=== PATIENT | male | born 1975 | race Caucasian/White ===

== ENCOUNTER 2018-05-07 16:43 | Emergency (ER) | payer OTHER ==
[~2018-05-07] VITALS: Ht 182.9 cm; Wt 102.3 kg
--- NOTE | 2018-05-07 17:54 | REP ---
Clinical: Fall with pain. Technique: AP and lateral views of the left tibia / fibula. Findings: No acute fracture or dislocation. Skeletal structures, joint spaces, and surrounding soft tissues appear normal. No subcutaneous emphysema or radiodense foreign body. Impression: No acute fracture or dislocation. Electronically Signed by Ramiro Figueroa MD 05/07/2018 05:45 P
[2018-05-07 18:03] VITALS: BP 119/81
== END 2018-05-07 18:04 | disposition home or self-care (01) ==
LOC: M ED 16:43
DX: S80.12XA Contusion of left lower leg, initial encounter (principal); W00.0XXA Fall on same level due to ice and snow, initial encounter; Y92.89 Other specified places as the place of occurrence of the external cause

== ENCOUNTER 2018-08-21 14:41 | Emergency (ER) | payer OTHER ==
[~2018-08-21] VITALS: Ht 185.4 cm; Wt 50.6 kg
[2018-08-21] MEDS ORDERED: TIZA4CAP (14:53)
[2018-08-21] MEDS ORDERED: MELO15TA28 (14:53)
[2018-08-21] MEDS ORDERED: GABA-843 (14:53)
--- NOTE | 2018-08-21 15:43 | REP ---
Duplex extremity venous ultrasound: Left lower extremity. History: Left foot swelling. Rule out venous thrombosis. Findings: The deep veins are anechoic and fully compressible from the groin to the popliteal fossa in the left lower extremity. Color flow imaging is homogeneous. Spectral Doppler interrogation demonstrates intact respiratory variation in flow and normal manual augmentation of flow. There is no evidence of deep vein thrombosis. Impression: Negative left lower extremity duplex venous ultrasound. No evidence of deep vein thrombosis. Electronically Signed by Andrea Cordero MD 08/21/2018 03:34 P
[2018-08-21 17:22] VITALS: BP 126/78
== END 2018-08-21 17:36 | disposition home or self-care (01) ==
LOC: M ED 14:41
DX: M54.42 Lumbago with sciatica, left side (principal); R20.2 Paresthesia of skin; R20.0 Anesthesia of skin; Z79.899 Other long term (current) drug therapy

== ENCOUNTER → 2019-09-16 | Outpatient (REF) | payer OTHER ==
[~2019-09-16] MED LIST: GABA-843; MELO15TA28; TIZA4CAP
== END ==
LOC: M LAB REF 17:20
PROVIDERS: ATTEND Physician Assistant
DX: M54.5 Low back pain (principal)

== ENCOUNTER 2019-09-25 20:02 | Inpatient (IN) | payer BC, OTHER ==
[~2019-09-25] VITALS: Ht 182.9 cm; Wt 117.0 kg
[2019-09-25] MEDS: IPRATROPIUM 0.5MG/ALBUTEROL 2.5MG INH SOL UD 3ML (DUONEB) NEB SCH (20:00)
[2019-09-25] MEDS ORDERED: PROPOFOL 1,000 MG/100 ML VIAL As Ordered ONE (20:20)
[2019-09-25] MEDS ORDERED: propofoL 1,000 MG in IV 1 EA IV SCH (20:44)
[2019-09-25] MEDS ORDERED: ETOMIDATE INJ 20MG/10ML VIAL IV ONE (20:45)
[2019-09-25] MEDS ORDERED: NS 1,000 ML IV ONE (20:45)
[2019-09-25] MEDS ORDERED: SUCCINYLCHOLINE INJ 200 MG/10 ML VIAL (J0330) IV ONE (20:45)
[2019-09-25 20:46] LABS: BASO # 0.1 10^3/uL (0.0-0.2); BASO % 0.9 % (0.0-1.0); EOS # 0.2 10^3/uL (0.0-0.5); EOS % 2.5 % (0.0-3.0); HEMATOCRIT 47.5 % (42.0-52.0); HEMOGLOBIN 16.1 g/dl (13.5-17.5); LYMPH # 2.4 10^3/uL (1.5-5.0); LYMPH % 29.6 % (24.0-44.0); MEAN CORPUSCULAR HEMOGLOBIN 30.8 pg (27.0-33.0); MEAN CORPUSCULAR HGB CONC 33.9 g/dl (32.0-36.5); MEAN CORPUSCULAR VOLUME 90.8 fl (80.0-96.0); MONO # 0.5 10^3/uL (0.0-0.8); MONO % 6.3 % (0.0-5.0); NEUTROPHILS # 4.9 10^3/uL (1.5-8.5); PLATELET COUNT, AUTOMATED 292 10^3/uL (150-450); RED BLOOD COUNT 5.23 10^6/uL (4.30-6.10); WHITE BLOOD COUNT 8.1 10^3/uL (4.0-10.0)
[2019-09-25] MEDS ORDERED: ISOVUE-370 76% 100ML VIAL As Ordered ONE (20:58)
[2019-09-25] MEDS ORDERED: CHLORHEXIDINE GLUCONATE 0.12 % 15ML UDC (PERIDEX ORAL RINSE) MT SCH (21:00)
[2019-09-25 21:15] LABS: OSMOLALITY SERUM 353 MOSM/KG (275-295)
[2019-09-25 21:28] LABS: ALBUMIN 4.2 GM/DL (3.2-5.2); ALT/SGPT 29 U/L (12-78); BILIRUBIN,DIRECT 0.1 MG/DL (0.0-0.2); BILIRUBIN,TOTAL 0.3 MG/DL (0.2-1.0); BLOOD UREA NITROGEN 16 MG/DL (7-18); CALCIUM LEVEL 9.1 MG/DL (8.5-10.1); CARBON DIOXIDE LEVEL 23 MEQ/L (21-32); CHLORIDE LEVEL 110 MEQ/L (98-107); CREATININE FOR GFR 1.21 MG/DL (0.70-1.30); ETHYL ALCOHOL (ETHANOL) 0.213 % (0.000-0.010); GLOMERULAR FILTRATION RATE > 60.0 (>60); GLUCOSE, FASTING 98 MG/DL (70-100); POTASSIUM SERUM 3.9 MEQ/L (3.5-5.1); SALICYLATE LEVEL < 1.7 MG/DL (5.0-30.0); SODIUM LEVEL 144 MEQ/L (136-145); THYROID STIMULATING HORMONE 0.913 uIU/ML (0.358-3.740); TOTAL PROTEIN 8.1 GM/DL (6.4-8.2)
[2019-09-25 21:29] LABS: ACETAMINOPHEN LEVEL < 2.0 UG/ML (10.0-30.0)
[2019-09-25 21:41] LABS: CPK CREATINE PHOSPHOKINASE 554 U/L (39-308); TROPONIN I < 0.02 NG/ML (< 0.10)
[2019-09-25 21:42] LABS: CK-MB VALUE MASS 3.8 NG/ML (<3.6); MB/CK RELATIVE INDEX 0.69 (< OR =4)
--- NOTE | 2019-09-25 21:43 | REPVR ---
PROCEDURE INFORMATION: Exam: CT Head Without Contrast Exam date and time: 09/25/2019 9:06 PM Age: 44 years old Clinical indication: Pain; Headache; Additional info: Altered mental status TECHNIQUE: Imaging protocol: Computed tomography of the head without contrast. Radiation optimization: All CT scans at this facility use at least one of these dose optimization techniques: automated exposure control; mA and/or kV adjustment per patient size (includes targeted exams where dose is matched to clinical indication); or iterative reconstruction. COMPARISON: No relevant prior studies available. FINDINGS: Brain: Normal. No hemorrhage. Unremarkable white matter. No mass effect. Ventricles: Normal. No ventriculomegaly. Bones/joints: Unremarkable. No acute fracture. Sinuses: Visualized sinuses are unremarkable. No fluid levels. Mastoid air cells: Visualized mastoid air cells are well aerated. Soft tissues: Unremarkable. IMPRESSION: No acute intracranial abnormality. Electronically signed by: Sagar Brothers On 09/25/2019 21:43:16 PM
--- NOTE | 2019-09-25 21:56 | REPVR ---
PROCEDURE INFORMATION: Exam: CT Angiography Chest with Contrast Exam date and time: 09/25/19 (9:06pm) Age: 44 years old Clinical indication: Chest pain TECHNIQUE: Imaging protocol: Computed tomographic angiography of the chest with intravenous contrast. 3D rendering: MIP and/or 3D reconstructed images were created by the technologist. Radiation optimization: All CT scans at this facility use at least one of these dose optimization techniques: automated exposure control; mA and/or kV adjustment per patient size (includes targeted exams where dose is matched to clinical indication); or iterative reconstruction. Contrast material: Iso 370 Contrast volume: 100 ml Contrast route: IV COMPARISON: No relevant prior studies available FINDINGS: Pulmonary arteries: Normal. No pulmonary emboli. Aorta: Unremarkable. No aortic aneurysm. No aortic dissection. Lungs: Streaky parenchymal changes and consolidation/atelectasis posteriorly at each lung base. Some air bronchograms are noted. No masses. Pleural space: No pneumothorax. Minimal pleural effusions. Elevation of the right hemidiaphragm. Heart: Unremarkable. No cardiomegaly. No pericardial effusion. Lymph nodes: Unremarkable. No enlarged lymph nodes. Other findings: Airway tube in place, with its tip approx. 3 cm above the reji. Bones/joints: Unremarkable. No acute fracture. Soft tissues: Unremarkable. Upper abdomen: Enteric tube noted, with its tip in the proximal third of the stomach. IMPRESSION: Streaky parenchymal changes and consolidation / atelectasis posteriorly at each lung base. Some air bronchograms are noted. Minimal pleural effusions. Possible bibasilar pneumonia, with consolidation. Follow-up with plain CXR's is suggested. Airway tube and enteric tube in place. Electronically signed by: Corie Arnold On 09/25/2019 21:55:41 PM
[2019-09-25] MEDS ORDERED: MIDAZOLAM 5MG/ML 1ML VIAL (J2250 PER 1MG) As Ordered ONE (22:02)
[2019-09-25 22:13] LABS: AMPHETAMINES LEVEL URINE NEGATIVE (NEGATIVE); BARBITURATES URINE NEGATIVE (NEGATIVE); BENZODIAZEPINES URINE NEGATIVE (NEGATIVE); CANNABINOIDS URINE NEGATIVE (NEGATIVE); COCAINE METABOLITE URINE NEGATIVE (NEGATIVE); METHADONE URINE NEGATIVE (NEGATIVE); OPIATES URINE NEGATIVE (NEGATIVE); PHENCYCLIDINE URINE NEGATIVE (NEGATIVE)
[2019-09-25] MEDS ORDERED: levETIRAcetam INJection 1,000 MG in D5W 100 ML IV ONE (22:15)
[2019-09-25] MEDS ORDERED: KCL 20MEQ IN D5/0.45NS 1000ML 1,000 ML IV SCH (22:15)
--- NOTE | 2019-09-25 22:15 | REPVR ---
PROCEDURE INFORMATION: Exam: CT Abdomen and Pelvis with Contrast Exam date and time: 09/25/19 (9:06pm) Age: 44 years old Clinical indication: Abdominal and chest pain. Unresponsiveness. TECHNIQUE: Imaging protocol: Computed tomography of the abdomen and pelvis with intravenous contrast. Radiation optimization: All CT scans at this facility use at least one of these dose optimization techniques: automated exposure control; mA and/or kV adjustment per patient size (includes targeted exams where dose is matched to clinical indication); or iterative reconstruction. Contrast material: Iso 370 Contrast volume: 100 ml Contrast route: IV COMPARISON: No relevant prior studies available FINDINGS: Lower lung barron: Streaky changes and consolidation and/or atelectasis posteriorly at each lung base. Minimal pleural effusions. Liver: Normal. No solid mass. Gallbladder and bile ducts: Normal. No calcified stones. No ductal dilatation. Pancreas: Normal. No ductal dilatation. Spleen: Normal. No splenomegaly. Adrenals: Normal. No mass. Kidneys and ureters: Normal. No hydronephrosis. Stomach and bowel: Distended stomach, filled with food debris and air. No bowel obstruction. No mucosal thickening. Appendix: A normal appendix is visualized. Other findings: Enteric tube in place, with its tip in the proximal third of the stomach. Intraperitoneal space: Unremarkable. No free air. No significant fluid collection. Vasculature: Unremarkable. No abdominal aortic aneurysm. Lymph nodes: Unremarkable. No enlarged lymph nodes. Bladder: Unremarkable as visualized. Reproductive: Unremarkable as visualized. Bones/joints: Unremarkable. No acute fracture. Soft tissues: Unremarkable. IMPRESSION: Possible bibasilar pneumonia (see separate CT-CHEST report). No acute bowel pathology. No hydronephrosis. Enteric tube in place. Electronically signed by: Corie Arnold On 09/25/2019 22:14:48 PM
[2019-09-25] MEDS: MIDAZOLAM INJ 2MG/2ML VIAL (J2250 PER 1MG) IV PRN ×2 (22:36→23:26)
[2019-09-25] MEDS ORDERED: MIDAZOLAM 5MG/ML 1ML VIAL (J2250 PER 1MG) IV STA (22:41)
[2019-09-25] MEDS: propofoL 1,000 MG in IV 1 EA IV SCH (22:49)
[2019-09-25 23:25] VITALS: BP 147/84
[2019-09-25 23:30] VITALS: BP 124/74
[2019-09-25 23:32] LABS: ABG BASE EXCESS -4.9 (-2.0-2.0); ABG HCO3 23.4 MEQ/L (22.0-26.0); ABG O2 SATURATION 98.1 % (95.0-99.0); ABG PARTIAL PRESSURE CO2 56.4 mmHg (35.0-45.0); ABG PARTIAL PRESSURE O2 127.3 mmHg (75.0-100.0); ABG STANDARD HCO3 20.5 MEQ/L (22.0-26.0); ABG TOTAL CO2 25.1 MEQ/L (22.0-29.0)
[2019-09-25 23:33] LABS: ABG pH (ARTERIAL) 7.235 UNITS (7.350-7.450)
--- NOTE | 2019-09-25 23:56 | HPE ---
DATE OF ADMISSION: 09/25/2019 CRITICAL CARE NOTE/ADMISSION HISTORY AND PHYSICAL DATE OF SERVICE: 09/25/2019 Critical care time was 1 hour and 16 minutes, this excludes all procedures. I was called to the emergency room by Dr. Plummer to admit this patient who reportedly was combative after consuming alcohol, recently being prescribed trazodone and in the ambulance received two large doses of ketamine for a total of 500 mg. On arrival to the emergency room, the patient was sedated to the point where he required intubation. [place] imaging was performed. Then I was called for admission. On my review, I did call his significant other who provided information she was with him when he came to sit down after eating a large meal and started grabbing at his throat and then had what appeared to be seizure-like activity. The patient then had slumped over, fallen on the floor, continued with multiple shaking movements of the arms and legs. The significant other, who is a nurse, described it in her own words as seizure-like activity. She gave him rescue breaths and eventually the seizure activity stopped prior to the ambulance arriving. After awhile, the patient came to, was able to speak. Apparently this changed during the ambulance ride, and he required reportedly ketamine. Showed up sedated in the emergency room. On my arrival to the emergency room, the patient was sedated, moving some extremities, mostly his right arm in a rhythmic-type motion. Upon my physical exam, the pupils were not reactive, and he began to have rhythmic motion of his entire body and what appeared to be at tonic-clonic seizure despite being on propofol. Versed was given at that time at 5 mg. The overall tonic-clonic movement stopped. However, with dorsiflexion of the foot, there continued to be continued beats of myoclonus. I then loaded the patient with Keppra. After Keppra loading, there was no evidence of myoclonus with dorsiflexion of the foot. It does appear that the patient had recent medication adjustments including being on gabapentin and tizanidine. His states he did not take his gabapentin as he was trying to get off of it, but was recently started on trazodone. He was consuming alcohol throughout the day, and there was some mention of him being dehydrated on his most recent blood work in the office. The only other notable symptom that his significant other provided me is that he has been having headaches for approximately 3 months. He has no prior history of seizure activity. As far as his past medical history, other than headaches and chronic pain, no other significant medical history. SOCIAL HISTORY: Unobtainable. FAMILY HISTORY: Unobtainable. REVIEW OF SYSTEMS: Unobtainable. PHYSICAL EXAMINATION: Temperature is 97.3, pulse is 90, respiratory rate is 20, blood pressure is 106/55 with an oxygen saturation of 98% on 0.50 FiO2. General: Sedated on mechanical ventilation now, witnessed seizure activity as mentioned above, full tonic-clonic activity. HEENT: Sclerae are somewhat injected. The left sclera is slightly edematous. Pupils are not reactive to light. Approximately 5 mm but symmetric. Mucous membranes are moist. Tongue is midline. Lymphs: No cervical, supraclavicular or axillary lymphadenopathy. Cardiac: Regular, S1, S2 without audible murmur, rub or gallop. No elevated jugular venous pressure (JVP). No peripheral edema. Pulmonary: Clear to auscultation without rales, rhonchi or wheezes. No dullness to percussion. Abdomen is soft, nontender, nondistended with hypoactive bowel sounds, but they are present. No discernible hepatosplenomegaly. No masses or hernia. Extremities: No cyanosis, clubbing or edema. Neurologic exam: As mentioned above, fluctuating degrees of myoclonus that improved after loading with Keppra. There has been no distinct posturing. At the beginning of the seizure, at first I thought he was posturing, but then it turned into a full tonic-clonic seizure. This was short lived. There has been no other seizure activity since that time. I am unable to test any other parts of his neurologic exam as I am attempting to suppress seizure activity. LABORATORY EVALUATION: White blood cell count is 8.1, hemoglobin of 16.1, platelet count is 292, neutrophils 60%. Sodium is 144, potassium 3.9, chloride is 110, bicarbonate of 23, anion gap is 11, BUN is 16, creatinine is 1.21. This has improved since his initial chem panel, which suggested an anion gap of 16, creatinine was up to 1.5. Toxicology is negative except for alcohol. There is no opioids, methadone, barbiturates, PCP, amphetamines, cocaine or cannabinoids. Acetaminophen and salicylate levels are negative. CK was elevated consistent with likely seizure activity. Albumin is normal at 4.2. Urine does show positive RBCs with blood in the urine. Head CT shows no acute intracranial abnormality. Angio CT shows bilateral lower lobe dependent atelectasis versus minimal consolidation. Chest x-ray shows decreased air entry without effusion, mass or infiltrate. Abdominal CT shows no acute bowel pathology. No hydronephrosis and a G-tube that is in place with a distended stomach. IMPRESSION: 1. Acute respiratory failure, likely provoked by seizure activity, partially complicated by drug administration. There is no evidence of a drug overdose or inappropriate illicit drug use. I do believe the most likely event was that the patient was starting to have a seizure or aspirating. Medications he is on at home, whether he is withdrawing or taking more, could easily in combination provoke seizure activity. Will, therefore, hold all home medications, start Keppra, place on propofol with as needed Versed. Continue to monitor for signs and symptoms of seizure activity. Will continue frequent neurologic exams. Every morning will perform neurologic exams under sedation vacation. My expectation is when the drug effect wears off that he will likely be able to come off the ventilator. 2. Bilateral atelectasis, possible aspiration. No elevated white count, no fever at this point in time. I am not going to initiate any antibiotics but will cautiously watch the patient for development of infection. 3. Deep vein thrombosis (DVT) prophylaxis with heparin. 4. Gastrointestinal (GI) prophylaxis with Protonix. Stomach is filled with food; therefore, will not start tube feeds at this point in time. Will consider a neurology consultation if the patient has persistent seizure activity.
[2019-09-26] VITALS (17 sets, daily range): BP systolic 98–153; BP diastolic 52–95
[2019-09-26] MEDS ORDERED: cefTRIAXone SOD 1 GM in D5W MINI-BAG PLUS 50 ML IV SCH ×2
[2019-09-26] MEDS: MIDAZOLAM INJ 2MG/2ML VIAL (J2250 PER 1MG) IV PRN ×2 (01:39→04:33)
[2019-09-26] MEDS: propofoL 1,000 MG in IV 1 EA IV SCH (01:49)
[2019-09-26 04:51] LABS: HEMATOCRIT 41.2 % (42.0-52.0); MEAN CORPUSCULAR HEMOGLOBIN 30.3 pg (27.0-33.0); MEAN CORPUSCULAR VOLUME 91.8 fl (80.0-96.0); PLATELET COUNT, AUTOMATED 240 10^3/uL (150-450); RED BLOOD COUNT 4.49 10^6/uL (4.30-6.10); WHITE BLOOD COUNT 7.8 10^3/uL (4.0-10.0)
[2019-09-26 04:59] LABS: HEMOGLOBIN 13.6 g/dl (13.5-17.5)
[2019-09-26 05:01] LABS: ALBUMIN 3.3 GM/DL (3.2-5.2); ALT/SGPT 21 U/L (12-78); BILIRUBIN,TOTAL 0.2 MG/DL (0.2-1.0); BLOOD UREA NITROGEN 14 MG/DL (7-18); CALCIUM LEVEL 7.9 MG/DL (8.5-10.1); CARBON DIOXIDE LEVEL 24 MEQ/L (21-32); CHLORIDE LEVEL 112 MEQ/L (98-107); CREATININE FOR GFR 0.99 MG/DL (0.70-1.30); GLOMERULAR FILTRATION RATE > 60.0 (>60); GLUCOSE, FASTING 100 MG/DL (70-100); POTASSIUM SERUM 3.8 MEQ/L (3.5-5.1); SODIUM LEVEL 142 MEQ/L (136-145); TOTAL PROTEIN 6.4 GM/DL (6.4-8.2)
[2019-09-26 05:44] LABS: ABG BASE EXCESS -3.6 (-2.0-2.0); ABG HCO3 22.3 MEQ/L (22.0-26.0); ABG O2 SATURATION 98.8 % (95.0-99.0); ABG PARTIAL PRESSURE CO2 43.3 mmHg (35.0-45.0); ABG PARTIAL PRESSURE O2 149.1 mmHg (75.0-100.0); ABG STANDARD HCO3 21.5 MEQ/L (22.0-26.0); ABG TOTAL CO2 23.6 MEQ/L (22.0-29.0); ABG pH (ARTERIAL) 7.329 UNITS (7.350-7.450)
[2019-09-26] MEDS: IPRATROPIUM 0.5MG/ALBUTEROL 2.5MG INH SOL UD 3ML (DUONEB) NEB SCH (05:55)
[2019-09-26] MEDS ORDERED: LORazepam 2 MG/ML VIAL IV PRN (06:00)
--- NOTE | 2019-09-26 06:42 | REP ---
Clinical: Respiratory failure . Comparison: 09/25/2019 . Findings: The mediastinum and cardiac silhouette are stable and within normal limits for portable technique. Subtle infrahilar atelectasis (left greater than right) is suggested, but improved as compared to prior examination. Previously noted endotracheal tube and nasogastric tube have been removed. No effusion. No pneumothorax. Skeletal structures are intact. Impression: Mild perihilar and left basilar atelectasis improved from prior examination. Electronically Signed by Ramiro Figueroa MD 09/26/2019 06:34 A
--- NOTE | 2019-09-26 06:54 | REP ---
Clinical: Altered mental status. Comparison: None. Findings: Endotracheal tube 3.5 cm above the reji. Nasogastric tube courses below left hemidiaphragm. Evaluation is limited by poor inspiratory effort which accentuates the pulmonary vasculature and interstitium. Perihilar and basilar atelectasis cannot be excluded. No discrete focal consolidation, effusion, or pneumothorax. Skeletal structures are intact. Impression: 1. Endotracheal tube and nasogastric tube in satisfactory position. 2. Perihilar and basilar atelectasis cannot be excluded. Electronically Signed by Ramiro Figueroa MD 09/26/2019 06:46 A
[2019-09-26] MEDS: ENOXAPARIN 40MG/0.4ML SYRINGE (J1650 PER 10MG) SC SCH (07:57)
[2019-09-26] MEDS ORDERED: levETIRAcetam INJection 1,000 MG in D5W 100 ML IV SCH (09:00)
[2019-09-26] MEDS ORDERED: FOLIC ACID 1 MG TAB PO SCH (09:00)
[2019-09-26] MEDS ORDERED: MULTIVITAMINS/MINERALS THERAP 1 TAB PO SCH (09:00)
[2019-09-26] MEDS ORDERED: PANTOPRAZOLE 40MG VIAL (C9113 PER 1) IV SCH (09:00)
--- NOTE | 2019-09-26 09:24 | CCN ---
DATE OF SERVICE: 09/26/2019 CRITICAL CARE TIME: 50 minutes. This excludes all procedures. The patient had self extubated approximately 5 a.m.. He was awake without oxygen desaturation. Therefore, it was determined to leave him extubated. He had no further seizure activity. He has some short-term memory loss, stating he cannot remember the events. I have explained that, that is normal especially with what he has been through. He continues to have a posterior headache, which has been present for almost 3 months now. He has had no fever, chills. He has no elevated white count. He was given a dose of antibiotics overnight for presumed aspiration due to copious amounts of secretions from the endotracheal tube. However, this was discontinued this morning. PHYSICAL EXAMINATION: Temperature is 98.2, pulse of 86, respiratory rate is 19, blood pressure is 153/95 with a mean arterial pressure of 114, oxygen saturations 99% on 3 liters. General: Patient sitting in bed speaking in a soft voice. HEENT: Sclerae clear and anicteric. Pupils equal and react to light. Mucous membranes moist without lesions. Tongue is midline. Neck is supple. No tracheal deviation or mass. Lymphs: No cervical, supraclavicular, or axillary adenopathy. Cardiac: Regular, S1, S2. Without audible murmur, rub, or gallop. No elevated jugular venous pulse (JVP). No peripheral edema. Pulmonary: Clear to auscultation without rales, rhonchi, or wheezes. No dullness to percussion. No accessory muscle use. Abdomen: Obese, soft, nontender, nondistended with normoactive bowel sounds. No mass or splenomegaly. Extremities: No cyanosis, clubbing, or edema. Skin: No rash, jaundice, or bruising. Musculoskeletal: Patient able to move all four extremities to command. Muscle strength is 4/5 bilaterally, however and this is symmetric. However, I believe some of this is patient effort. Deep tendon reflexes (DTRs) are normal at patella and brachial radialis. There is no further myoclonus with dorsiflexion of the foot. There is no nystagmus.. No asterixis. Laboratory evaluation shows a sodium 142, potassium 3.8, chloride of 112, bicarbonate of 24, BUN of 14, creatinine of 0.99, fasting glucose of 100, last lactic acid was 1.9, calcium 7.9. AST and ALT are normal. Alkaline phosphatase is normal. Albumin is down to 3.3. Blood gas this morning shows a pH of 7.33, pCO2 of 43, pAO2 of 149 on 0.35 FiO2. White blood cell count is 7.8, hemoglobin of 13.6 with a platelet count of 240. Chest x-ray shows minimal nonspecific abnormalities without dense infiltrate. Some hypo expansion. No pneumothorax. Trachea midline. IMPRESSION: 1. Respiratory failure from seizure activity. The patient self extubated this am and is doing well. As far as seizure activity, discussed the case with Dr. Grimes, our neurologist, who agrees that the history of the medications combination of gabapentin, tizanidine, trazodone in a combination with alcohol could be the perfect storm to setup for seizure activity. At this point in time, will remain on Keppra. Will also start zonisamide 50 mg by mouth at bedtime for the first week. This can be increased to 100 mg after the first week. This may also help with his headaches and help him sleep at night. He will have followup with neurology. To complete some of his workup to ensure that he is not a danger for further seizure activity MRI will be performed to rule out any structural abnormalities and EEG will be performed to ensure that there is no further underlying seizure activity. 2. Presumed aspiration. Will stop antibiotics at this point in time. Continue to monitor for infection. At this point in time, there is no fever or white count. 3. Deep venous thrombosis (DVT) prophylaxis. Will continue with heparin. 4. Gastrointestinal (GI) prophylaxis. On Protonix. Will initiate diet as tolerated. Prognosis overall, I believe the patient will likely be able to be discharged tomorrow unless there is an unexpected finding on imaging. [facility]
--- NOTE | 2019-09-26 17:02 | IPNPDOC ---
Subjective Date Seen The patient was seen on 09/26/19. Subjective Chief Complaint/HPI Complains of soreness all over the body. He cannot remember the events. Last thing he remembers in sitting on the couch and getting the remote to change the TV channels. Objective Physical Examination General Exam: Positive: Alert, Cooperative, No Acute Distress Eye Exam: Positive: PERRLA, Conjunctiva & lids normal, EOMI; Negative: Sclera icteric ENT Exam: Positive: Atraumatic, Mucous membr. moist/pink, Pharynx Normal Neck Exam: Positive: Supple; Negative: JVD, thyromegaly Chest Exam: Positive: Clear to auscultation, Normal air movement Heart Exam: Positive: Rate Normal, Regular Rhythm, Normal S1, Normal S2; Negative: Murmurs, Rubs Abdomen Exam: Positive: Normal bowel sounds, Soft; Negative: Tenderness, Hepatospenomegaly Extremity Exam: Positive: Normal pulses; Negative: Clubbing, Cyanosis, Edema Skin Exam: Positive: Nl turgor and temperature; Negative: Rash, Breakdown Assessment /Plan Assessment Acute Respiratory failure from seizure activity. was intubated in the ED for obtundation and inability to maintain airway after big dose of ketamine given in ambulance probably for post ictal delirium/psychosis when reportedly he had become combative in the ambulance. patient self extubated this am. Was able to maintain airway. Seizures [place] seizures at least 2 episodes. Due to a combination of medications with alcohol. Alcohol level was 0.213 Gabapentin, tizanidine, trazodone in a combination with alcohol could cause seizures. continue on Keppra 1000 mg bid and Zonisamide. zonisamide 50 mg by mouth at bedtime for the first week. This can be increased to 100 mg after the first week. Neurology follow up after discharge. MRI to look for any structural abnormality. EEG will be performed to ensure that there is no further underlying seizure activity. Presumed aspiration. No signs of infection at present. will monitor for fever stopped antibiotics at present. Back Pain leg pain after injury in Apr. Deep venous thrombosis (DVT) prophylaxis. Lovenox Gastrointestinal (GI) prophylaxis. On Protonix. Plan/VTE VTE Prophylaxis Ordered?: Yes VS, I&O, 24H, Fishbone Vital Signs/I&O Vital Signs Date Time Temp Pulse Resp B/P (MAP) Pulse Ox O2 Delivery O2 Flow Rate FiO2 09/26/19 11:44 99.1 83 29 135/86 (102) 97 Room Air 09/26/19 08:00 30 09/25/19 21:33 18.0 I&O- Last 24 Hours up to 6 AM 09/26/19 07:00 Intake Total 2176 ml Output Total 1075 ml Balance 1101 ml Laboratory Data 24H LABS Laboratory Tests 2 09/25/19 20:24: Urine Color YELLOW, Urine Appearance HAZY, Urine pH 5.0, Urine Specific [place] 1.028, Urine Protein 1+H, Urine Glucose (UA) NEGATIVE, Urine Ketones NEGATIVE, Urine Blood 2+H, Urine Nitrite NEGATIVE, Urine Bilirubin NEGATIVE, Urine Urobilinogen 0.2, Urine Leukocyte Esterase NEGATIVE, Urine WBC (Auto) 0, Urine RBC (Auto) 30H, Urine Hyaline Casts (Auto) 21, Urine Bacteria (Auto) NEGATIVE, Urine Squamous Epithelial Cells 0, Urine Mucus (Auto) SMALL, Urine Sperm (Auto) , Urine Opiates Screen NEGATIVE, Urine Methadone Screen NEGATIVE, Urine Barbiturates Screen NEGATIVE, Urine Phencyclidine Screen NEGATIVE, Urine Amphetamines Screen NEGATIVE, Urine Benzodiazepines Screen NEGATIVE, Urine Cocaine Metabolite Screen NEGATIVE, Urine Cannabinoids Screen NEGATIVE 09/25/19 20:32: Immature Granulocyte % (Auto) 0.7, Neutrophils (%) (Auto) 60.0, Lymphocytes (%) (Auto) 29.6, Monocytes (%) (Auto) 6.3H, Eosinophils (%) (Auto) 2.5, Basophils (%) (Auto) 0.9, Neutrophils # (Auto) 4.9, Lymphocytes # (Auto) 2.4, Monocytes # (Auto) 0.5, Eosinophils # (Auto) 0.2, Basophils # (Auto) 0.1, Nucleated Red Blood Cells % (auto) 0.0, Anion Gap 11, Glomerular Filtration Rate > 60.0, Osm olality 353H, Calcium Level 9.1, Total Bilirubin 0.3, Direct Bilirubin 0.1, Aspartate Amino Transf (AST/SGOT) 28, Alanine Aminotransferase (ALT/SGPT) 29, Alkaline Phosphatase 106, Ammonia 26, Total Creatine Kinase 554H, Creatine Kinase MB 3.8H, Creatine Kinase MB Relative Index 0.69, Troponin I < 0.02, Total Protein 8.1, Albumin 4.2, Albumin/Globulin Ratio 1.1, Thyroid Stimulating Hormone (TSH) 0.913, Salicylates Level < 1.7L, Acetaminophen Level < 2.0L, Ethyl Alcohol Level 0.213H 09/25/19 20:40: POC Glucose (Misc Panel) 105, POC Sodium (Misc Panel) 144, POC Potassium (Misc Panel) 3.7, POC Chloride (Misc Panel) 106, POC Total CO2 (Misc Panel) 22.0L, POC Blood Urea Nitrogen (Misc Panel 17, POC Ionized Calcium (Misc Panel) 4.5, POC Creatinine (Misc Panel) 1.5H, POC Hematocrit (Misc Panel) 48.0 09/25/19 20:56: POC Total CO2 (Misc Panel) 24.0, POC pH (Misc Panel) 7.271L, POC Base Excess (Misc Panel) -4.0L, POC Saturated Percent O2 (Misc) 99H, POC pO2 (Misc Panel) 148.0H, POC pCO2 (Misc Panel) 48.6H, POC HCO3 (Misc Panel) 22.4 09/25/19 23:20: Blood Gas Bicarbonate Standard 20.5L, Arterial Blood pH 7.235*L, Arterial Blood Partial Pressure CO2 56.4H, Arterial Blood Partial Pressure O2 127.3H, Arterial Blood Total CO2 25.1, Arterial Blood HCO3 23.4, Arterial Blood Base Excess - 4.9L, Arterial Blood Oxygen Saturation 98.1 09/26/19 00:04: Lactic Acid Level 1.9 09/26/19 04:12: Nucleated Red Blood Cells % (auto) 0.0, Anion Gap 6L, Glomerular Filtration Rate > 60.0, Calcium Level 7.9L, Total Bilirubin 0.2, Aspartate Amino Transf (AST/SGOT) 30, Alanine Aminotransferase (ALT/SGPT) 21, Alkaline Phosphatase 84, Total Protein 6.4#, Albumin 3.3#, Albumin/Globulin Ratio 1.1 09/26/19 05:24: Blood Gas Bicarbonate Standard 21.5L, Arterial Blood pH 7.329L, Arterial Blood Partial Pressure CO2 43.3, Arterial Blood Partial Pressure O2 149.1H, Arterial Blood Total CO2 23.6, Arterial Blood HCO3 22.3, Arterial Blood Base Excess - 3.6L, Arterial Blood Oxygen Saturation 98.8 CBC/BMP Laboratory Tests 09/25/19 20:32 09/26/19 04:12 Microbiology Microbiology 09/26/19 Blood Culture, Received Pending 09/26/19 Blood Culture, Received Pending CATIE FRANCO MD Sep 26, 2019 17:02
[2019-09-26] MEDS ORDERED: LORazepam 2 MG TAB PO PRN (17:15)
[2019-09-26] MEDS ORDERED: PROHANCE 279.3MG/ML 5ML VIAL As Ordered ONE (18:38)
[2019-09-26] MEDS ORDERED: PROHANCE 279.3MG/ML 15ML VIAL As Ordered ONE (18:39)
[2019-09-26] MEDS: levETIRAcetam 250MG TABLET (KEPPRA) PO SCH (20:01)
--- NOTE | 2019-09-26 20:36 | REPVR ---
PROCEDURE INFORMATION: Exam: MR Head Without and With Contrast Exam date and time: 09/26/2019 7:17 PM Age: 44 years old Clinical indication: Screening exam; Patient HX: Seizure; Additional info: Seizures TECHNIQUE: Imaging protocol: MR of the head without and with intravenous contrast. Contrast material: PROHANCE; Contrast volume: 20 ml; Contrast route: INTRAVENOUS (IV); COMPARISON: CT Head without contrast 09/25/2019 8:54 PM FINDINGS: Brain: There is no acute cortical infarction, intracranial hemorrhage or mass. No abnormal contrast enhancement is seen in the brain parenchyma or leptomeninges. Ventricles: There is a normal variant cavum septum pellucidum et vergae without ventriculomegaly. Bones/joints: Unremarkable. Sinuses: Normal as visualized. No acute sinusitis. Mastoid air cells: Normal as visualized. No mastoid effusion. Orbits: Unremarkable. Soft tissues: Unremarkable. IMPRESSION: No acute intracranial findings. A seizure focus is not identified. Electronically signed by: Geri Nichols On 09/26/2019 20:36:18 PM
[2019-09-26] MEDS ORDERED: THIAMINE 100 MG TAB PO SCH (21:00)
[2019-09-26] MEDS ORDERED: ZONISAMIDE 50 MG CAP (ZONEGRAN) PO SCH (21:00)
[2019-09-27 04:00] VITALS: BP 125/77
[2019-09-27 05:19] LABS: HEMATOCRIT 43.1 % (42.0-52.0); HEMOGLOBIN 14.6 g/dl (13.5-17.5); MEAN CORPUSCULAR HEMOGLOBIN 30.9 pg (27.0-33.0); MEAN CORPUSCULAR HGB CONC 33.9 g/dl (32.0-36.5); MEAN CORPUSCULAR VOLUME 91.1 fl (80.0-96.0); PLATELET COUNT, AUTOMATED 245 10^3/uL (150-450); RED BLOOD COUNT 4.73 10^6/uL (4.30-6.10); WHITE BLOOD COUNT 7.4 10^3/uL (4.0-10.0)
[2019-09-27 05:51] LABS: ALBUMIN 3.4 GM/DL (3.2-5.2); ALT/SGPT 24 U/L (12-78); BILIRUBIN,TOTAL 0.6 MG/DL (0.2-1.0); BLOOD UREA NITROGEN 14 MG/DL (7-18); CALCIUM LEVEL 8.5 MG/DL (8.5-10.1); CARBON DIOXIDE LEVEL 31 MEQ/L (21-32); CHLORIDE LEVEL 107 MEQ/L (98-107); CREATININE FOR GFR 1.01 MG/DL (0.70-1.30); GLOMERULAR FILTRATION RATE > 60.0 (>60); GLUCOSE, FASTING 86 MG/DL (70-100); POTASSIUM SERUM 3.8 MEQ/L (3.5-5.1); SODIUM LEVEL 139 MEQ/L (136-145); TOTAL PROTEIN 6.6 GM/DL (6.4-8.2)
[2019-09-27] MEDS ORDERED: ZONI50CA11 PO (06:35)
[2019-09-27] MEDS ORDERED: KEPP1TAB PO (06:35)
[2019-09-27 08:00] VITALS: BP 135/89
[2019-09-27] MEDS: levETIRAcetam 250MG TABLET (KEPPRA) PO SCH (08:00)
[2019-09-27] MEDS: ENOXAPARIN 40MG/0.4ML SYRINGE (J1650 PER 10MG) SC SCH (08:08)
--- NOTE | 2019-09-27 08:51 | EEG ---
DATE OF PROCEDURE: 09/26/2019 REFERRING PHYSICIAN: Dr. Saravanan Bhandari DIAGNOSIS: Seizure. EEG #: [id number] HISTORY: The patient is a 44-year-old man who was admitted at [facility] due to respiratory failure provoked by seizure, complicated by changes in medications recently and alcohol consumption. This EEG was done to rule out epileptic potential. He is currently on Keppra and zonisamide and received propofol, Versed and Ativan. TECHNICAL DESCRIPTION: This digital EEG was recorded by 21 scalp, ear and two EKG electrodes and was reviewed in bipolar and referential montages following reformatting in 10-20 international electrode placement system. INTERPRETATION: The patient was noted to be in awake and drowsy states during this EEG. Resting awake background rhythm consisted of 8-9 Hz alpha activity measuring 15-40 microvolts in amplitude which was symmetric to and reactive to eye opening. Attenuation of posterior dominant rhythm was seen during transition into drowsiness. No sleep was achieved. Hyperventilation and photic stimulation remained unremarkable. EKG revealed normal sinus rhythm. No focal, lateralizing or epileptiform abnormalities were seen. No relevant clinical activity was noted. CONCLUSION: This EEG in awake and drowsy states is within normal limits.
[2019-09-27] MEDS ORDERED: PANTOPRAZOLE 40MG TAB (PROTONIX) PO SCH (09:00)
[2019-09-27] MEDS ORDERED: propofoL 200 MG/20 ML VIAL ONE (09:11)
[2019-09-27] MEDS ORDERED: ETOMIDATE INJ 20MG/10ML VIAL ONE (09:11)
[2019-09-27] MEDS ORDERED: SUCCINYLCHOLINE INJ 200 MG/10 ML VIAL (J0330) ONE (09:11)
--- NOTE | 2019-09-27 10:46 | ECGEPIP ---
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
== END 2019-09-27 09:12 | disposition home or self-care (01) | DRG 53 ==
LOC: M ED 20:02 → M ED INP 22:08 → ENRESERV 22:36 → M ICU 23:12
PROVIDERS: ADMIT Internal Medicine Pulmonary Disease; ATTEND Internal Medicine Nephrology
PROC: 5A1935Z Respiratory Ventilation, Less than 24 Consecutive Hours (ICD-10-PCS; principal; 2019-09-25)
DX: G40.409 Other generalized epilepsy and epileptic syndromes, not intractable, without status epilepticus (principal); J96.00 Acute respiratory failure, unspecified whether with hypoxia or hypercapnia; G93.41 Metabolic encephalopathy; J98.11 Atelectasis; T17.290A Other foreign object in pharynx causing asphyxiation, initial encounter; M54.5 Low back pain; F10.129 Alcohol abuse with intoxication, unspecified; Y92.008 Other place in unspecified non-institutional (private) residence as the place of occurrence of the external cause

== ENCOUNTER 2019-09-30 14:43 | Emergency (ER) | payer BC, OTHER ==
[~2019-09-30] VITALS: Ht 185.4 cm; Wt 113.6 kg
[~2019-09-30 14:43] MED LIST changes: +KEPP1TAB PO; +ZONI50CA11 PO
[2019-09-30] MEDS ORDERED: diphenhydrAMINE 50MG/ML VIAL (J1200) IV ONE (15:15)
[2019-09-30] MEDS ORDERED: METOCLOPRAMIDE INJ 10MG/2ML VIAL (J2765 PER 1) IV ONE (15:15)
[2019-09-30] MEDS ORDERED: NS 1,000 ML IV ONE (15:15)
[2019-09-30] MEDS ORDERED: KETOROLAC 30 MG/ML 1ML VIAL IM ONE (15:30)
[2019-09-30 15:34] LABS: BASO # 0.1 10^3/uL (0.0-0.2); EOS # 0.3 10^3/uL (0.0-0.5); EOS % 3.5 % (0.0-3.0); HEMATOCRIT 47.9 % (42.0-52.0); HEMOGLOBIN 16.1 g/dl (13.5-17.5); LYMPH # 2.2 10^3/uL (1.5-5.0); MEAN CORPUSCULAR HEMOGLOBIN 30.4 pg (27.0-33.0); MEAN CORPUSCULAR HGB CONC 33.6 g/dl (32.0-36.5); MEAN CORPUSCULAR VOLUME 90.5 fl (80.0-96.0); MONO # 0.6 10^3/uL (0.0-0.8); MONO % 7.8 % (0.0-5.0); NEUTROPHILS # 4.4 10^3/uL (1.5-8.5); NEUTROPHILS % 58.2 % (36.0-66.0); PLATELET COUNT, AUTOMATED 258 10^3/uL (150-450); RED BLOOD COUNT 5.29 10^6/uL (4.30-6.10); WHITE BLOOD COUNT 7.7 10^3/uL (4.0-10.0)
--- NOTE | 2019-09-30 15:41 | REP ---
Head CT without contrast: History: Altered mental status. Comparison study: No comparison study September 25, 2019. CT findings: Bone window settings demonstrate an intact bony calvarium. There is no evidence of skull fracture or incidental bony calvarial lesion. The visualized paranasal sinuses appear clear. No intraorbital abnormality is seen. On soft tissue window setting images; the lateral, third, and fourth ventricles are normal in size and position. Cummins-white differentiation pattern is normal above and below the tentorium. There are is no evidence of intracranial hemorrhage. No mass, edema, infarction, or midline shift is seen. No extra-axial fluid collection is appreciated. Impression: Negative noncontrast head CT. Electronically Signed by Andrea Cordero MD 09/30/2019 03:33 P
[2019-09-30 16:17] LABS: ACETAMINOPHEN LEVEL < 2.0 UG/ML (10.0-30.0); ALBUMIN 3.9 GM/DL (3.2-5.2); ALT/SGPT 32 U/L (12-78); BILIRUBIN,DIRECT 0.1 MG/DL (0.0-0.2); BILIRUBIN,TOTAL 0.2 MG/DL (0.2-1.0); BLOOD UREA NITROGEN 22 MG/DL (7-18); CALCIUM LEVEL 9.3 MG/DL (8.5-10.1); CARBON DIOXIDE LEVEL 26 MEQ/L (21-32); CHLORIDE LEVEL 107 MEQ/L (98-107); CREATININE FOR GFR 1.08 MG/DL (0.70-1.30); ETHYL ALCOHOL (ETHANOL) < 0.003 % (0.000-0.010); GLOMERULAR FILTRATION RATE > 60.0 (>60); GLUCOSE, FASTING 76 MG/DL (70-100); POTASSIUM SERUM 4.3 MEQ/L (3.5-5.1); SALICYLATE LEVEL 1.8 MG/DL (5.0-30.0); SODIUM LEVEL 138 MEQ/L (136-145); TOTAL PROTEIN 7.5 GM/DL (6.4-8.2)
[2019-09-30 16:45] VITALS: BP 113/73
[2019-09-30] MEDS ORDERED: REGL10TA6 PO (16:54)
== END 2019-09-30 17:16 | disposition home or self-care (01) ==
LOC: M ED 14:43
DX: R51 Headache (principal)
CPT/HCPCS: 70450; 80048; 80076; 82140; 84443; 85025; 93041; 94760; 96361; 96372; 96374; 96375; 99284; G0480; J1200; J1885; J2765

== ENCOUNTER 2019-10-05 22:17 | Emergency (ER) | payer BC, OTHER ==
[~2019-10-05] VITALS: Ht 185.4 cm; Wt 113.0 kg
[2019-10-05 22:17] VITALS: BP 135/81
[~2019-10-05 22:17] MED LIST changes: +REGL10TA6 PO
[2019-10-05] MEDS ORDERED: KETO10TAB PO (22:31)
[2019-10-05] MEDS ORDERED: SUMA100T2 PO (22:31)
[2019-10-05] MEDS ORDERED: DULO1CAP6 PO (22:31)
[2019-10-05] MEDS ORDERED: dexameTHASONE 4 MG/ML 1ML VIAL (J1100 PER 1MG) IV ONE (22:45)
[2019-10-05] MEDS ORDERED: MECLIZINE 25 MG TABLET PO ONE (22:45)
[2019-10-05] MEDS ORDERED: PROMETHAZINE INJ 25 MG/ML VIAL (J2550) IV ONE (22:45)
[2019-10-05] MEDS ORDERED: NS 1,000 ML IV ONE (22:45)
[2019-10-06 00:08] LABS: BASO # 0.1 10^3/uL (0.0-0.2); BASO % 1.1 % (0.0-1.0); EOS # 0.2 10^3/uL (0.0-0.5); EOS % 2.7 % (0.0-3.0); HEMATOCRIT 50.3 % (42.0-52.0); LYMPH # 2.5 10^3/uL (1.5-5.0); LYMPH % 33.4 % (24.0-44.0); MEAN CORPUSCULAR HEMOGLOBIN 30.2 pg (27.0-33.0); MEAN CORPUSCULAR HGB CONC 33.8 g/dl (32.0-36.5); MEAN CORPUSCULAR VOLUME 89.5 fl (80.0-96.0); MONO # 0.5 10^3/uL (0.0-0.8); MONO % 6.7 % (0.0-5.0); NEUTROPHILS # 4.1 10^3/uL (1.5-8.5); NEUTROPHILS % 55.6 % (36.0-66.0); PLATELET COUNT, AUTOMATED 304 10^3/uL (150-450); RED BLOOD COUNT 5.62 10^6/uL (4.30-6.10); WHITE BLOOD COUNT 7.3 10^3/uL (4.0-10.0)
[2019-10-06] MEDS ORDERED: MECL1TAB31 PO (01:35)
[2019-10-06] MEDS ORDERED: PROM25TA12 PO (01:35)
[2019-10-06] MEDS ORDERED: MECLIZINE 25 MG TABLET PO ONE (01:45)
[2019-10-06] MEDS ORDERED: PROMETHAZINE 25 MG TAB PO ONE (01:45)
== END 2019-10-06 02:03 | disposition home or self-care (01) ==
LOC: M ED 22:17
DX: R51 Headache (principal); R42 Dizziness and giddiness; R56.9 Unspecified convulsions; Z79.899 Other long term (current) drug therapy
CPT/HCPCS: 80047; 85025; 96361; 96374; 96375; 99282; J1100

== ENCOUNTER → 2019-10-26 | Outpatient (CLI) | payer BC, OTHER ==
[~2019-10-26] MED LIST changes: +AIMO70IN2; +DIVA500T9 PO; +DULO1CAP6 PO; +EQL50TAB2 PO; +KETO10TAB PO; +MECL1TAB31 PO; +OMEP40CA97 PO; +PROM25TA12 PO; +RIZA10TA58 SL; +SUMA100T2 PO
[2019-10-30 16:08] LABS: ANCA-ATYPICAL <1:20 titer (Neg:<1:20); ANGIOTENSIN 1 CONVERTING ENZYM 32 U/L (14-82); ANTI DS-DNA AB Negative (Negative); ANTINUCLEAR ANTIBODIES DIRECT Negative (Negative); CYTOPLASMIC NEUTROP AB ANCA-C <1:20 titer (Neg:<1:20); Lyme Disease IgG/IgM Antibodie <0.91 ISR (0.00-0.90); Lyme Disease IgM Ab Quantitati <0.80 index (0.00-0.79); PERINUCLEAR AB ANCA-P <1:20 titer (Neg:<1:20)
== END ==
LOC: M PLALAB 15:46
PROVIDERS: ATTEND Psychiatry & Neurology Neurology
DX: G40.89 Other seizures (principal); R51 Headache

== ENCOUNTER 2019-12-21 21:18 | Emergency (ER) | payer BC, OTHER ==
[~2019-12-21] VITALS: Ht 185.4 cm; Wt 117.7 kg
[~2019-12-21 21:18] MED LIST changes: -AIMO70IN2; -DIVA500T9 PO; -EQL50TAB2 PO; -OMEP40CA97 PO; -RIZA10TA58 SL
[2019-12-21] MEDS ORDERED: RIZA10TA58 SL (21:31)
[2019-12-21] MEDS ORDERED: AIMO70IN2 (21:31)
[2019-12-21] MEDS ORDERED: EQL50TAB2 PO (21:31)
[2019-12-21] MEDS ORDERED: DIVA500T9 PO (21:31)
[2019-12-21] MEDS ORDERED: OMEP40CA97 PO (21:31)
[2019-12-21 21:56] LABS: BASO # 0.1 10^3/uL (0.0-0.2); EOS # 0.3 10^3/uL (0.0-0.5); EOS % 3.3 % (0.0-3.0); HEMATOCRIT 47.2 % (42.0-52.0); HEMOGLOBIN 15.5 g/dl (13.5-17.5); LYMPH # 2.9 10^3/uL (1.5-5.0); LYMPH % 36.2 % (24.0-44.0); MEAN CORPUSCULAR HEMOGLOBIN 30.3 pg (27.0-33.0); MEAN CORPUSCULAR HGB CONC 32.8 g/dl (32.0-36.5); MEAN CORPUSCULAR VOLUME 92.4 fl (80.0-96.0); MONO # 0.7 10^3/uL (0.0-0.8); MONO % 8.4 % (0.0-5.0); NEUTROPHILS % 50.5 % (36.0-66.0); PLATELET COUNT, AUTOMATED 256 10^3/uL (150-450); RED BLOOD COUNT 5.11 10^6/uL (4.30-6.10); WHITE BLOOD COUNT 7.9 10^3/uL (4.0-10.0)
[2019-12-21 22:25] LABS: ALBUMIN 3.8 GM/DL (3.2-5.2); ALT/SGPT 24 U/L (12-78); BILIRUBIN,DIRECT < 0.1 MG/DL (0.0-0.2); BILIRUBIN,TOTAL 0.2 MG/DL (0.2-1.0); LIPASE 191 U/L (73-393); TOTAL PROTEIN 7.6 GM/DL (6.4-8.2)
[2019-12-21] MEDS ORDERED: NS 1,000 ML IV ONE (22:30)
[2019-12-21] MEDS ORDERED: ISOVUE-370 76% 100ML VIAL As Ordered ONE (22:34)
--- NOTE | 2019-12-21 23:10 | REPVR ---
PROCEDURE INFORMATION: Exam: CT Abdomen And Pelvis With Contrast Exam date and time: 12/21/2019 10:45 PM Age: 44 years old Clinical indication: Abdominal pain and tenderness, diffuse, constipation and vomiting. TECHNIQUE: Imaging protocol: Computed tomography of the abdomen and pelvis with intravenous contrast. Radiation optimization: All CT scans at this facility use at least one of these dose optimization techniques: automated exposure control; mA and/or kV adjustment per patient size (includes targeted exams where dose is matched to clinical indication); or iterative reconstruction. Contrast material: ISOVUE 370; Contrast volume: 100 ml; Contrast route: INTRAVENOUS (IV); COMPARISON: CT ABD/PEL W/IV CONTRAST ONLY 09/25/2019 8:54 PM FINDINGS: Lungs: The imaged portions of the lung bases are clear. The lungs were not fully imaged. Heart: No cardiomegaly or pericardial effusion. Diaphragm: Intact. Liver: The attenuation of the liver is more than 40 Hounsfield units lower in attenuation compared to the spleen, which is compatible with fatty liver infiltration. No liver lesion. The contour of the liver is smooth. No hepatomegaly. Gallbladder and bile ducts: No calcified gallstones are noted. No gallbladder wall thickening, pericholecystic fluid, or pericholecystic inflammatory changes are identified. No dilation of the bile ducts is noted. No calcified stones are seen in the common bile duct. Pancreas: Normal. No dilation of the main pancreatic duct is noted. There is no inflammatory fat stranding around the pancreas to suggest acute pancreatitis. Spleen: Normal. No splenomegaly is noted. Adrenals: Normal. No adrenal mass is noted. Kidneys and ureters: The kidneys are normal in appearance. No renal lesion is noted. No stones are noted in the kidneys or ureters. There is no hydronephrosis or hydroureter. There are no wedge-shaped areas of low attenuation in the kidneys to suggest pyelonephritis. There is no renal abscess or perinephric fluid collection. Stomach and bowel: The small bowel is unremarkable. There is no evidence for a bowel obstruction, diverticulosis, diverticulitis, colitis, perforated viscus, pneumatosis intestinalis, intussusception, or volvulus. There is a mild amount of formed stool in the colon. Appendix: Normal. There is no evidence for appendicitis. Intraperitoneal space: No free air. No ascites. No asbcess. Retroperitoneal space: No fluid collection. No mass. Vasculature: The abdominal aorta is patent, normal in caliber, and there is no dissection. The iliac arteries, common femoral arteries, renal arteries, celiac artery, superior mesenteric artery, and inferior mesenteric artery are patent. Lymph nodes: No enlarged lymph nodes. Bladder: The partially distended urinary bladder is unremarkable. No stones or masses are seen in the bladder. Reproductive: The prostate gland and seminal vesicles are unremarkable. Bones/joints: There is no fracture or dislocation. No suspicious osteolytic or osteoblastic lesion. There is mild osteoarthritis of both hip joints that is similar in appearance compared to the prior CT abdomen and pelvis on 09/25/2019. Soft tissues: There is a small fat containing umbilical hernia, which is similar in appearance compared to the prior CT on 09/25/2019. IMPRESSION: 1. No acute findings in the abdomen or pelvis. 2. Mild amount of formed stool in the colon. No bowel obstruction. 3. Fatty liver. 4. Small fat containing umbilical hernia, which is similar in appearance compared to the prior CT on 09/25/2019. Electronically signed by: Kj Banda On 12/21/2019 23:09:36 PM
[2019-12-21 23:54] VITALS: BP 133/81
== END 2019-12-22 00:03 | disposition home or self-care (01) ==
LOC: M ED 21:18
DX: K42.9 Umbilical hernia without obstruction or gangrene (principal); K76.0 Fatty (change of) liver, not elsewhere classified; Z79.899 Other long term (current) drug therapy
CPT/HCPCS: 74177; 80047; 80076; 83690; 85025; 96360; 99284; Q9967

== ENCOUNTER → 2020-02-11 | Outpatient (CLI) | payer BC, OTHER ==
[~2020-02-11] MED LIST changes: +AIMO70IN2; +DIVA500T9 PO; +EQL50TAB2 PO; +OMEP40CA97 PO; +RIZA10TA58 SL
--- NOTE | 2020-02-11 21:12 | ECGEPIP ---
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
== END ==
LOC: M EKG 10:32
PROVIDERS: ATTEND Psychiatry & Neurology Neurology
DX: G40.201 Localization-related (focal) (partial) symptomatic epilepsy and epileptic syndromes with complex partial seizures, not intractable, with status epilepticus (principal)

== ENCOUNTER → 2021-01-02 | Outpatient (REF) | payer BC, OTHER ==
[~2021-01-02] MED LIST changes: +GABA-282; -GABA-843; +OMEP40CA4 PO; -OMEP40CA97 PO
[2021-01-02 13:06] LABS: APPEARANCE, URINE CLEAR (CLEAR); BACTERIA, URINE AUTO NEGATIVE (NEGATIVE); BILIRUBIN, URINE AUTO NEGATIVE (NEGATIVE); BLOOD, URINE BLOOD NEGATIVE (NEGATIVE); COLOR, URINE YELLOW (YELLOW); GLUCOSE, URINE (UA) AUTO NEGATIVE (NEGATIVE); KETONE, URINE AUTO NEGATIVE (NEGATIVE); LEUKOCYTE ESTERASE, URINE AUTO NEGATIVE (NEGATIVE); MUCUS, URINE SMALL (NEGATIVE); NITRITE, URINE AUTO NEGATIVE (NEGATIVE); PROTEIN, URINE AUTO NEGATIVE (NEGATIVE); RBC, URINE AUTO 1 /HPF (0-3); SPECIFIC GRAVITY URINE AUTO 1.014 (1.002-1.035); SQUAMOUS EPITHELIAL CELL UR AU 0 /HPF (0-6); UROBILINOGEN, URINE AUTO 0.2 mg/dL (0.0-2.0); WBC, URINE AUTO 1 /HPF (0-3)
== END ==
LOC: M SMT 12:49
PROVIDERS: ATTEND Nurse Practitioner Women's Health
DX: R36.1 Hematospermia (principal)

== ENCOUNTER → 2022-01-19 | Outpatient (CLI) | payer BC, OTHER | LOC: M SLEEP 08:33 | DX: R56.9 Unspecified convulsions (principal) ==

== ENCOUNTER → 2022-02-03 | Outpatient (CLI) | payer BC, OTHER ==
[~2022-02-03] MED LIST changes: +PROHANCE 279.3MG/ML 15ML VIAL ONE; +PROHANCE 279.3MG/ML 5ML VIAL ONE
== END ==
LOC: M PLAIMG 11:12
PROVIDERS: ATTEND Psychiatry & Neurology Hospice and Palliative Medicine
DX: G40.919 Epilepsy, unspecified, intractable, without status epilepticus (principal)
CPT/HCPCS: 70553; A9576

== ENCOUNTER → 2023-04-22 | Outpatient (CLI) | payer BC, OTHER ==
[~2023-04-22] MED LIST changes: +MECL-209 PO; -MECL1TAB31 PO; -PROHANCE 279.3MG/ML 15ML VIAL ONE; -PROHANCE 279.3MG/ML 5ML VIAL ONE
[2023-04-22 13:07] LABS: HEMATOCRIT 47.6 % (42.0-52.0); HEMOGLOBIN 16.2 g/dl (13.5-17.5); MEAN CORPUSCULAR HEMOGLOBIN 29.9 pg (27.0-33.0); MEAN CORPUSCULAR VOLUME 87.8 fl (80.0-96.0); PLATELET COUNT, AUTOMATED 326 10^3/uL (150-450); RED BLOOD COUNT 5.42 10^6/uL (4.30-6.10)
[2023-04-22 13:29] LABS: THYROID STIMULATING HORMONE 0.975 uIU/ML (0.55-4.78)
[2023-04-22 13:30] LABS: ALBUMIN 4.1 G/DL (3.2-5.2); ALKALINE PHOSPHATASE 93 U/L (46-116); ALT/SGPT 25 U/L (7.0-40); AST/SGOT 20 U/L (<34); BILIRUBIN,TOTAL 0.9 MG/DL (0.3-1.2); BLOOD UREA NITROGEN 20 MG/DL (9-23); CALCIUM LEVEL 9.1 MG/DL (8.5-10.1); CARBON DIOXIDE LEVEL 25 MMOL/L (20-31); CHLORIDE LEVEL 107 MMOL/L (98-107); CHOLESTEROL LEVEL 128 MG/DL (<200); CHOLESTEROL RISK RATIO 3.29 (<5); CREATININE FOR GFR 1.15 MG/DL (0.70-1.30); GLOMERULAR FILTRATION RATE > 60.0 (>60); GLUCOSE, FASTING 90 MG/DL (60-100); HDL CHOLESTEROL 38.8 MG/DL (>40); LDL CHOLESTEROL 80.8 MG/DL (<100); NON-HDL-C 89.2 MG/DL; POTASSIUM SERUM 4.3 MMOL/L (3.5-5.1); SODIUM LEVEL 141 MMOL/L (136-145); TOTAL PROTEIN 7.1 G/DL (5.7-8.2); TRIGLYCERIDES LEVEL 42 MG/DL (<150)
== END ==
LOC: M WUC 10:32
PROVIDERS: ATTEND Internal Medicine
DX: E66.3 Overweight (principal)

== ENCOUNTER → 2024-01-12 | Outpatient (CLI) | payer BC, OTHER ==
[~2024-01-12] MED LIST changes: +GABA-1172; -GABA-282
[2024-01-12 14:19] LABS: BASO # 0.1 10^3/uL (0.0-0.2); BASO % 0.9 % (0.0-1.0); EOS # 0.2 10^3/uL (0.0-0.5); EOS % 2.7 % (0.0-3.0); HEMATOCRIT 50.5 % (42.0-52.0); HEMOGLOBIN 16.5 g/dl (13.5-17.5); LYMPH # 1.8 10^3/uL (1.5-5.0); LYMPH % 25.7 % (24.0-44.0); MEAN CORPUSCULAR HEMOGLOBIN 29.7 pg (27.0-33.0); MEAN CORPUSCULAR HGB CONC 32.7 g/dl (32.0-36.5); MONO # 0.4 10^3/uL (0.0-0.8); MONO % 6.2 % (2.0-8.0); NEUTROPHILS # 4.5 10^3/uL (1.5-8.5); NEUTROPHILS % 64.1 % (36.0-66.0); PLATELET COUNT, AUTOMATED 316 10^3/uL (150-450); RED BLOOD COUNT 5.55 10^6/uL (4.30-6.10); WHITE BLOOD COUNT 7.1 10^3/uL (4.0-10.0)
[2024-01-12 14:34] LABS: ALBUMIN 4.2 G/DL (3.2-5.2); ALKALINE PHOSPHATASE 110 U/L (46-116); ALT/SGPT 23 U/L (7.0-40); AST/SGOT 17 U/L (<34); BILIRUBIN,TOTAL 0.6 MG/DL (0.3-1.2); BLOOD UREA NITROGEN 19 MG/DL (9-23); CALCIUM LEVEL 10.2 MG/DL (8.5-10.1); CARBON DIOXIDE LEVEL 30 MMOL/L (20-31); CHLORIDE LEVEL 105 MMOL/L (98-107); CREATININE FOR GFR 1.15 MG/DL (0.70-1.30); GLOMERULAR FILTRATION RATE > 60.0 (>60); GLUCOSE, FASTING 106 MG/DL (60-100); POTASSIUM SERUM 4.3 MMOL/L (3.5-5.1); SODIUM LEVEL 140 MMOL/L (136-145); TOTAL PROTEIN 7.7 G/DL (5.7-8.2)
== END ==
LOC: M WUC 09:17
PROVIDERS: ATTEND Student in an Organized Health Care Education/Training Program
DX: G40.109 Localization-related (focal) (partial) symptomatic epilepsy and epileptic syndromes with simple partial seizures, not intractable, without status epilepticus (principal)

== ENCOUNTER → 2024-08-16 | Outpatient (REF) | payer OTHER ==
[2024-08-16 12:46] LABS: BASO # 0.1 10^3/uL (0.0-0.2); BASO % 0.8 % (0.0-1.0); EOS # 0.2 10^3/uL (0.0-0.5); EOS % 2.4 % (0.0-3.0); HEMOGLOBIN 16.2 g/dl (13.5-17.5); LYMPH # 2.3 10^3/uL (1.5-5.0); LYMPH % 25.8 % (24.0-44.0); MEAN CORPUSCULAR HGB CONC 33.1 g/dl (32.0-36.5); MEAN CORPUSCULAR VOLUME 90.7 fl (80.0-96.0); MONO # 0.6 10^3/uL (0.0-0.8); MONO % 7.2 % (2.0-8.0); NEUTROPHILS # 5.5 10^3/uL (1.5-8.5); NEUTROPHILS % 63.5 % (36.0-66.0); PLATELET COUNT, AUTOMATED 308 10^3/uL (150-450); WHITE BLOOD COUNT 8.7 10^3/uL (4.0-10.0)
[2024-08-16 13:11] LABS: BILIRUBIN,TOTAL 0.4 MG/DL (0.3-1.2); CALCIUM LEVEL 9.2 MG/DL (8.5-10.1); CREATININE FOR GFR 1.15 MG/DL (0.70-1.30); GLOMERULAR FILTRATION RATE 77.5 (>56); TOTAL PROTEIN 7.4 G/DL (5.7-8.2)
== END ==
LOC: M LABWUC 12:10
PROVIDERS: ATTEND Student in an Organized Health Care Education/Training Program
DX: G40.109 Localization-related (focal) (partial) symptomatic epilepsy and epileptic syndromes with simple partial seizures, not intractable, without status epilepticus (principal)

== ENCOUNTER → 2024-10-25 | Outpatient (REF) | payer BC, OTHER ==
[~2024-10-25] MED LIST changes: -EQL50TAB2 PO; +VITA1TAB82 PO
[2024-10-25 18:39] LABS: BASO # 0.1 10^3/uL (0.0-0.2); BASO % 0.8 % (0.0-1.0); EOS # 0.1 10^3/uL (0.0-0.5); EOS % 1.5 % (0.0-3.0); LYMPH # 2.3 10^3/uL (1.5-5.0); LYMPH % 25.5 % (24.0-44.0); MONO # 0.6 10^3/uL (0.0-0.8); MONO % 7.1 % (2.0-8.0); NEUTROPHILS # 5.7 10^3/uL (1.5-8.5); NEUTROPHILS % 64.6 % (36.0-66.0); PLATELET COUNT, AUTOMATED 334 10^3/uL (150-450)
[2024-10-25 19:00] LABS: ALT/SGPT 19.0 U/L (7.0-40); AST/SGOT 17.0 U/L (<34); CALCIUM LEVEL 9.5 MG/DL (8.5-10.1); CARBON DIOXIDE LEVEL 27.0 MMOL/L (20-31); CHLORIDE LEVEL 104.0 MMOL/L (98-107); CREATININE FOR GFR 1.21 MG/DL (0.70-1.30); GLOMERULAR FILTRATION RATE 72.9 (>56); POTASSIUM SERUM 4.4 MMOL/L (3.5-5.1); SODIUM LEVEL 144.0 MMOL/L (136-145)
== END ==
LOC: M LAB REF 17:42 → M LABWUC 17:42
PROVIDERS: ATTEND Internal Medicine
DX: G40.89 Other seizures (principal)